=== PATIENT | female | born 1950 | race Caucasian/White ===

== ENCOUNTER 2017-02-24 08:34 | Day surgery (SDC) | payer OTHER, MEDICAID ==
[2017-02-24] MEDS ORDERED: NS 500 ML IV 500 ML IV ONE (08:54)
[2017-02-24] MEDS ORDERED: TETRACAINE 0.5% OPHTH 1 DOSE AFFEYE ONE ×4 (09:00→12:56)
[2017-02-24] MEDS ORDERED: VIGAMOX 0.5% OPHTH 1 DOSE AFFEYE ONE ×5 (09:05→13:12)
[2017-02-24] MEDS ORDERED: PROLENSA OPHTH 1 DOSE AFFEYE ONE (09:16)
[2017-02-24] MEDS ORDERED: ALPHAGAN-P OPHTH 1 DOSE AFFEYE ONE (09:17)
[2017-02-24] MEDS ORDERED: MYDRIACIL OPHTH 1 DOSE AFFEYE ONE ×3 (09:18→09:20)
[2017-02-24] MEDS ORDERED: CYCLOGYL 1% OPHTH 1 DOSE OP ONE ×3 (09:18→09:20)
[2017-02-24] MEDS ORDERED: AK-DILATE 2.5% OPHTH 1 DOSE OP ONE ×3 (09:18→09:20)
[2017-02-24] MEDS ORDERED: D5 1/2 NS 1000 ML 1,000 ML IV ONE (10:04)
[2017-02-24] MEDS ORDERED: DIPRIVAN VIAL ONE (10:16)
[2017-02-24] MEDS ORDERED: VERSED ONE (10:16)
[2017-02-24] MEDS ORDERED: XYLOCAINE-MPF 1% IJ ONE ×2 (12:51→12:56)
[2017-02-24] MEDS ORDERED: ADRENALINE CHL INJ IJ ONE ×2 (12:51→12:56)
[2017-02-24] MEDS ORDERED: BETADINE OPHTH SOLN 5% EACHEYE ONE (12:51)
[2017-02-24] MEDS ORDERED: DUOVISC IO ONE ×2 (12:52→12:56)
[2017-02-24] MEDS ORDERED: BSS OPHTH (PLAIN) 500 ML with VANCOMYCIN HCL 500 MG VIAL 25 MG, ADRENALINE CHL INJ 1 MG IR ONE ×6 (12:52)
[2017-02-24 13:40] VITALS: BP 190/86
== END 2017-02-24 13:37 | disposition home or self-care (01) ==
LOC: SURG1 08:34
PROVIDERS: ATTEND Ophthalmology
PROC: 08RK3JZ Replacement of Left Lens with Synthetic Substitute, Percutaneous Approach (ICD-10-PCS; principal; 2017-02-24 15:00)
PROC: 08DK3ZZ Extraction of Left Lens, Percutaneous Approach (ICD-10-PCS; principal; 2017-02-24 15:00)
DX: H25.12 Age-related nuclear cataract, left eye (principal); H25.012 Cortical age-related cataract, left eye; H52.222 Regular astigmatism, left eye
CPT/HCPCS: A4217; J0170; J2250; J3370; J3490; J7042

== ENCOUNTER 2017-03-03 07:02 | Day surgery (SDC) | payer OTHER, MEDICAID ==
[2017-03-03] MEDS ORDERED: TETRACAINE 0.5% OPHTH 1 DOSE AFFEYE ONE ×2 (07:20→09:10)
[2017-03-03] MEDS ORDERED: NS 500 ML IV 500 ML IV ONE (07:21)
[2017-03-03] MEDS ORDERED: VIGAMOX 0.5% OPHTH 1 DOSE AFFEYE ONE ×5 (07:25→09:48)
[2017-03-03] MEDS ORDERED: PROLENSA OPHTH 1 DOSE AFFEYE ONE (07:36)
[2017-03-03] MEDS ORDERED: ALPHAGAN-P OPHTH 1 DOSE AFFEYE ONE (07:37)
[2017-03-03] MEDS ORDERED: CYCLOGYL 1% OPHTH 1 DOSE OP ONE ×3 (07:38→07:40)
[2017-03-03] MEDS ORDERED: MYDRIACIL OPHTH 1 DOSE AFFEYE ONE ×3 (07:38→07:40)
[2017-03-03] MEDS ORDERED: AK-DILATE 2.5% OPHTH 1 DOSE OP ONE ×3 (07:38→07:40)
[2017-03-03] MEDS ORDERED: AK-DILATE 10% OPHTH 1 DOSE AFFEYE ONE (08:55)
[2017-03-03] MEDS ORDERED: BETADINE OPHTH SOLN 5% EACHEYE ONE (09:10)
[2017-03-03] MEDS ORDERED: DUOVISC IO ONE ×2 (09:14→09:23)
[2017-03-03] MEDS ORDERED: XYLOCAINE-MPF 1% IJ ONE ×2 (09:14→09:23)
[2017-03-03] MEDS ORDERED: ADRENALINE CHL INJ IJ ONE ×2 (09:14→09:23)
[2017-03-03] MEDS ORDERED: BSS OPHTH (PLAIN) 500 ML with VANCOMYCIN HCL 500 MG VIAL 25 MG, ADRENALINE CHL INJ 1 MG IR ONE ×6 (09:15)
[2017-03-03] MEDS ORDERED: VISCOAT 0.5 ML IO ONE (09:34)
[2017-03-03 10:41] VITALS: BP 175/78
[2017-03-03] MEDS ORDERED: VERSED ONE (15:41)
[2017-03-03] MEDS ORDERED: DIPRIVAN VIAL ONE (15:41)
== END 2017-03-03 10:15 | disposition home or self-care (01) ==
LOC: SURG1 07:02
PROVIDERS: ATTEND Ophthalmology
PROC: 08RJ3JZ Replacement of Right Lens with Synthetic Substitute, Percutaneous Approach (ICD-10-PCS; principal; 2017-03-03 07:30)
PROC: 08DJ3ZZ Extraction of Right Lens, Percutaneous Approach (ICD-10-PCS; principal; 2017-03-03 07:30)
DX: H25.11 Age-related nuclear cataract, right eye (principal); H25.011 Cortical age-related cataract, right eye; H52.221 Regular astigmatism, right eye
CPT/HCPCS: A4217; J0170; J2250; J3370; J3490